=== PATIENT | male | born 1945 | race Caucasian/White ===

== ENCOUNTER 2021-02-18 06:07 | Outpatient (CLI) | payer OTHER ==
[~2021-02-18] VITALS: Ht 185 cm; Wt 90.7 kg
[2021-02-18] MEDS ORDERED: ACET325T38 PO (16:54)
[2021-02-18] MEDS ORDERED: VIT1CAPS5 PO (16:54)
== END 2021-02-18 17:22 | disposition home or self-care (01) ==
LOC: PREOP 06:07
PROVIDERS: ATTEND Radiology Radiation Oncology
DX: Z01.818 Encounter for other preprocedural examination (principal)

== ENCOUNTER 2021-02-25 14:04 | Day surgery (SDC) | payer OTHER ==
[~2021-02-25] VITALS: Ht 185 cm; Wt 90.7 kg
[2021-02-25] VITALS (11 sets, daily range): BP systolic 110–170; BP diastolic 68–102
[~2021-02-25 14:04] MED LIST: ACET325T38 PO; VIT1CAPS5 PO
--- OUTSIDE RECORDS SUMMARY | 2021-02-25 14:09 | XMS REPORT | Clinical Summary ---
Author Author [facility] Organization [facility] Address Unknown Phone Unavailable Care Team Providers Care Factory Focus Technician Name Role Phone [facility] PCP [phone] Allergies No Known Active Allergies Medications End Date Status Medication Sig Dispensed Refills Start Date Active gabapentin (NEURONTIN) Take 100 mg 0 100 MG capsule by mouth 2 (two) times a day. Active meloxicam (MOBIC) 15 MG Take 15 mg by 0 tablet mouth daily. Active aspirin 81 MG EC tablet Take 81 mg by 0 mouth daily. Active tamsulosin (FLOMAX) 0.4 Take 0.4 mg 0 mg Cp24 by mouth daily. Active ferrous sulfate (IRON Take 1 tablet 0 ORAL) by mouth daily. Active CALCIUM ORAL Take 1 tablet 0 by mouth daily. 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/06/2017 Family History Medical History Relation Name Comments Cancer Father Cancer Mother Relation Name Status Comments Father Mother Social History Date Tobacco Use Types Packs/Day Years Used Never Smoker Smokeless Tobacco: Never Used Comments Alcohol Use Standard Drinks/Week rarely Yes 0 (1 standard drink = 0.6 o z pure alcohol) Sex Assigned at Date Recorded Not on file Last Filed Vital Signs Reading Time Taken Comments Vital Sign 182/90 10/24/2017 2:45 PM CDT Blood Pressure 58 10/24/2017 2:45 PM CDT Pulse 36.5 C (97.7 F) 10/24/2017 2:25 PM CDT Temperature 15 10/24/2017 2:45 PM CDT Respiratory Rate 97% 10/24/2017 2:45 PM CDT Oxygen Saturation - - Inhaled Oxygen Concentration 89.4 kg (197 lb) 10/24/2017 1:25 PM CDT Weight 185.4 cm (6' 1") 10/24/2017 1:25 PM CDT Height 25.99 10/24/2017 1:25 PM CDT Body Mass Index Plan of Treatment Health Maintenance Due Date Last Done Comments Td/Tdap# 1945 Zoster Vaccine# (1 of 2) 1996 Fall Risk Assessment # 10/18/2011 Pneumococcal Vaccine: 65+ 10/18/2011 Years (1 of 1 - PPSV23) Influenza Vaccine (#1) 2021 Results Not on filefrom Last 3 Months Insurance Type Payer Benefit Subscriber ID Effective Phone Address Plan / Dates Group Medicare MEDICARE MEDICARE [id number] 2011-P [place] B [place], [place] Advance Directives For more information, please contact: [phone] 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
--- OUTSIDE RECORDS SUMMARY | 2021-02-25 14:09 | XMS REPORT | Clinical Summary ---
Author Author [facility] Organization All Address Unknown Phone Unavailable Allergies, Adverse Reactions, Alerts Allergy Name Reaction Description Start Date Severity Status Pr ovider ZOCOR Critical Active Carol Elder ZOCOR Critical No Longer Active Alisson Mauricio MD ZOCOR Critical Inactive Carol E lder Conditions or Problems Problem Name Problem Code Onset Date Status Entry Date Provider Comment Standard Description Annotate BMI 25-25.9 Refinement Alisson Mauricio MD Body Mass Index 25.0-25.9, adult BMI 26-26.9 Refinement Alisson Mauricio MD Body Mass Index 25.0-25.9, adult BMI 25-25.9 Refinement Alisson Mauricio MD Body Mass Index 25.0-25.9, adult BMI 24-24.9 Refinement Alisson Mauricio MD Body Mass Index 25.0-25.9, adult BMI 26-26.9 Active Jeannie Peter LPN Body Mass Index 25.0-25.9, adult Overweight (BMI 25-29.9) Resolved Alisson Mauricio MD Overweight 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 598.2 08/07 Active Alisson Mauricio MD Postoperative urethral stric ture Elevated prostate specific antigen [PSA] Active Alisson Mauricio MD Overweight (BMI 25-29.9) Active Jeannie alvarado LPN Overweight Elevated prostate specific antigen [PSA] Active Alisson Mauricio MD Adenocarcinoma, prostate, [place] Grade 7 185 Activ e Alisson Mauricio MD Malignant neoplasm of prostate Overweight (BMI 25-29.9) Inactive 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 Medication List Medication Instructions Start Date Stop Date Generic Name NDC Status Provider Patient Instruction RA ACETAMINOPHEN 325 MG ORAL TABLET 1 tablet every 8 hours as ne eded ACETAMINOPHEN 86814938725 Active Alisson Mcdaniels ctive FLOMAX 0.4 MG ORAL CAPSULE 1 capsule by mouth every ev ening for prostate symptoms TAMSULOSIN HCL 26930124280 No Longer Active J Alisson Mauricio MD Active MULTIVITAMIN ADULT EXTRA C ORAL TABLET CHEWABLE 1 tab by mouth shabbir y MULTIPLE VITAMINS-MINERALS 40352511679 Active Carol Elder A ctive ASPIRIN ADULT LOW DOSE 81 MG ORAL TABLET DELAYED RELEASE 1 daily ASPIRIN 30207531770 Active Carol Elder Active FLOMAX 0.4 MG ORAL CAPSULE 1 capsule by mouth every ev ening for prostate symptoms FLOMAX 0.4 MG ORAL CAPSULE 000670 TAMSULOSI N HCL Inactive Immunizations Vaccine Administration Date Value Standard Aldair cription influenza immunization (Flu Vax) has been administered 08/07 Done according to patient Encounters Code Encounter Date Provider Facility CPT-03225 Level 4 Est. Patient 19:18:39 CDT Alisson sandoval MD [facility] CPT-68565 Level 4 New Patient 19:15:54 CDT Alisson mendoza MD [facility] CPT-64114 Level 3 Est. Patient 19:38:57 WATER QUALITY TESTER Alisson sandoval MD [facility] CPT-58105 Level 3 Est. Patient 13:43:19 CDT Alisson sandoval MD [facility] CPT-65546 Level 3 Est. Patient 15:37:09 CDT Alisson sandoval MD [facility] CPT-52943 Level 3 Est. Patient 10:46:38 CDT Alisson sandoval MD [facility] CPT-42582 Level 3 Est. Patient 16:50:35 CDT Alisson sandoval MD [facility] CPT-08211 Level 4 New Patient 15:37:12 WATER QUALITY TESTER Alisson mendoza MD [facility] Procedures Code Procedure Name Date Entry Date Standard Desc ription CPT-72820 Dil ureth strict sound/dilator M int 15:37:09 CDT CPT-87992 Cystoscopy 15:37:09 CDT CPT-08424 Cystoscopy 16:50:35 CDT [id number]-[id number] (4274F) Influenza immunization administe red or previously received 16:50:35 CDT CPT-01008 Dil ureth strict sound/dilator M int 15:37:12 WATER QUALITY TESTER CPT-25988 Cystoscopy 15:37:12 WATER QUALITY TESTER [id number]-[id number] (4274F) Influenza immunization administe red or previously received 15:37:12 WATER QUALITY TESTER
--- OUTSIDE RECORDS SUMMARY | 2021-02-25 14:09 | XMS REPORT | Clinical Summary ---
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 Medication List Medication Instructions Start Date Stop Date Generic Name NDC Status Provider Patient Instruction RA ACETAMINOPHEN 325 MG ORAL TABLET 1 tablet every 8 hours as ne eded ACETAMINOPHEN 57774600694 Active Alisson Mcdaniels ctive FLOMAX 0.4 MG ORAL CAPSULE 1 capsule by mouth every ev ening for prostate symptoms TAMSULOSIN HCL 87245839056 No Longer Active J Alisson Mauricio MD Active MULTIVITAMIN ADULT EXTRA C ORAL TABLET CHEWABLE 1 tab by mouth shabbir y MULTIPLE VITAMINS-MINERALS 30119478837 Active Carol Elder A ctive ASPIRIN ADULT LOW DOSE 81 MG ORAL TABLET DELAYED RELEASE 1 daily ASPIRIN 53909866145 Active Carol Elder Active FLOMAX 0.4 MG ORAL CAPSULE 1 capsule by mouth every ev ening for prostate symptoms FLOMAX 0.4 MG ORAL CAPSULE 632643 TAMSULOSI N HCL Inactive Immunizations Vaccine Administration Date Value Standard [place]air cription influenza immunization (Flu Vax) has been administered 08/07 Done according to patient Encounters Code Encounter Date Provider Facility CPT-10041 Level 4 Est. Patient 19:18:39 CDT Alisson sandoval MD [facility] CPT-35831 Level 4 New Patient 19:15:54 CDT Alisson mendoza MD [facility] CPT-19910 Level 3 Est. Patient 19:38:57 CONTROL TECHNICIAN Alisson sandoval MD [facility] CPT-15065 Level 3 Est. Patient 13:43:19 CDT Alisson sandoval MD [facility] CPT-78377 Level 3 Est. Patient 15:37:09 CDT Alisson sandoval MD [facility] CPT-13267 Level 3 Est. Patient 10:46:38 CDT Alisson sandoval MD [facility] CPT-93222 Level 3 Est. Patient 16:50:35 CDT Alisson sandoval MD [facility] [place]note 2[facility]a CPT-32235 Level 4 New Patient 15:37:12 CONTROL TECHNICIAN Alisson mendoza MD [facility] Procedures Code Procedure Name Date Entry Date Standard Desc ription CPT-25693 Dil ureth strict sound/dilator M int 15:37:09 CDT CPT-92203 Cystoscopy 15:37:09 CDT CPT-34410 Cystoscopy 16:50:35 CDT [id number]-[id number] (4274F) Influenza immunization administe red or previously received 16:50:35 CDT CPT-59127 Dil ureth strict sound/dilator M int 15:37:12 CONTROL TECHNICIAN CPT-39520 Cystoscopy 15:37:12 CONTROL TECHNICIAN CPT-[id number] (4274F) Influenza immunization administe red or previously received 15:37:12 CONTROL TECHNICIAN
--- OUTSIDE RECORDS SUMMARY | 2021-02-25 14:09 | XMS REPORT | Clinical Summary ---
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 Medication List Medication Instructions Start Date Stop Date Generic Name NDC Status Provider Patient Instruction RA ACETAMINOPHEN 325 MG ORAL TABLET 1 tablet every 8 hours as ne eded ACETAMINOPHEN 89339176894 Active Alisson Mcdaniels ctive FLOMAX 0.4 MG ORAL CAPSULE 1 capsule by mouth every ev ening for prostate symptoms TAMSULOSIN HCL 11636026081 No Longer Active J Alisson Mauricio MD Active MULTIVITAMIN ADULT EXTRA C ORAL TABLET CHEWABLE 1 tab by mouth shabbir y MULTIPLE VITAMINS-MINERALS 55951218693 Active Carol Elder A ctive ASPIRIN ADULT LOW DOSE 81 MG ORAL TABLET DELAYED RELEASE 1 daily ASPIRIN 14235897937 Active Carol Elder Active FLOMAX 0.4 MG ORAL CAPSULE 1 capsule by mouth every ev ening for prostate symptoms FLOMAX 0.4 MG ORAL CAPSULE 509834 TAMSULOSI N HCL Inactive Immunizations Vaccine Administration Date Value Standard [place]air cription influenza immunization (Flu Vax) has been administered 08/07 Done according to patient influenza virus vaccine, unspecified for mulation Vital Signs Date Name Value Unit Range Description blood pressure, diastolic, repeated by physician 78 BP roman blood pressure, diastolic 78 mm[Hg] BP roman blood pressure, systolic, repeated by physician 120 BP sys blood pressure, systolic 120 mm[Hg] BP sys height E&M 73 [in_us] Bdy height pulse rate 80 /min Heart rate temperature E&M 98.2 [degF] Body temp erature weight E&M 200 [lb_av] Weight Measure d blood pressure, diastolic 76 mm[Hg] BP roman blood pressure, systolic 122 mm[Hg] BP sys height E&M 73 [in_us] Bdy height pulse rate 78 /min Heart rate temperature E&M 98.0 [degF] Body temp erature weight E&M 200 [lb_av] Weight Measure d blood pressure, diastolic, repeated by physician 70 BP roman blood pressure, diastolic 70 mm[Hg] BP roman blood pressure, systolic, repeated by physician 118 BP sys blood pressure, systolic 118 mm[Hg] BP sys height E&M 73 [in_us] Bdy height pulse rate 68 /min Heart rate temperature E&M 98.3 [degF] Body temp erature weight E&M 184 [lb_av] Weight Measure d Encounters Code Encounter Date Provider Facility CPT-99386 Level 4 Est. Patient 19:18:39 CDT Alisson sandoval MD [facility] CPT-50123 Level 4 New Patient 19:15:54 CDT Alisson mendoza MD [facility] CPT-22603 Level 3 Est. Patient 19:38:57 WATER SKI ASSEMBLER Alisson sandoval MD [facility] CPT-66055 Level 3 Est. Patient 13:43:19 CDT Alisson sandoval MD [facility] CPT-30734 Level 3 Est. Patient 15:37:09 CDT Alisson sandoval MD [facility] CPT-84350 Level 3 Est. Patient 10:46:38 CDT Alisson sandoval MD [facility] CPT-83989 Level 3 Est. Patient 16:50:35 CDT Alisson sandoval MD [facility] CPT-37732 Level 4 New Patient 15:37:12 WATER SKI ASSEMBLER Alisson mendoza MD [facility] Procedures Code Procedure Name Date Entry Date Standard Desc ription CPT-11921 Dil ureth strict sound/dilator M int 15:37:09 CDT CPT-06820 Cystoscopy 15:37:09 CDT CPT-74156 Cystoscopy 16:50:35 CDT [id number]-[id number] (4274F) Influenza immunization administe red or previously received 16:50:35 CDT CPT-72711 Dil ureth strict sound/dilator M int 15:37:12 WATER SKI ASSEMBLER CPT-40002 Cystoscopy 15:37:12 WATER SKI ASSEMBLER CPT-[id number] (4274F) Influenza immunization administe red or previously received 15:37:12 WATER SKI ASSEMBLER
[2021-02-25] MEDS ORDERED: fentaNYL INJ 100 MCG/2 ML AMP ONE (14:30)
[2021-02-25] MEDS ORDERED: proPOfol 200 MG/20 ML (DIPRIVAN) VIAL IV ONE (14:30)
[2021-02-25] MEDS ORDERED: LIDOCAINE PF 2% 5 ML (XYLOCAINE) VIAL ONE (14:30)
[2021-02-25] MEDS ORDERED: SEVOFLURANE (ULTANE) 15 ML INHAL SOLN ONE (14:30)
[2021-02-25] MEDS ORDERED: ONDANSETRON 4 MG/2 ML (SDV) Z0FRAN ONE (14:30)
[2021-02-25] MEDS ORDERED: LACTATED RINGERS 1,000 ML IV PRN (14:30)
[2021-02-25] MEDS ORDERED: MIDAZOLAM 2 MG/2 ML (VERSED) VIAL ONE (14:30)
--- NOTE | 2021-02-25 14:36 | Progress Note-Pre Operative ---
Pre-Operative Progress Note H&P Reviewed The H&P was reviewed, patient examined and no changes noted. Date Seen by Provider: Feb 25, 2021 Time Seen by Provider: 14:35 Date H&P Reviewed: Feb 25, 2021 Time H&P Reviewed: 14:35 Pre-Operative Diagnosis: Prostate cancer cT1c, PSA 7.05, [place] 7 (3+4) JAIME ABDALLA MD Feb 25, 2021 14:36
--- NOTE | 2021-02-25 14:39 | Discharge Inst-Simple/Standard ---
Discharge Inst-Standard Reconcile Patient Problems Problems Reviewed?: Yes Discharge Medications New, Converted or Re-Newed RX: Other (Patient has antibiotic at home.) Patient Instructions/Follow Up Plan of Care/Instructions/FU: Treatment planning ct simulation at [facility] cancer center 03/10/21. Arrive at 9:30 a.m. to drink oral contrast. Sim at 10:00 a.m. Activity as Tolerated: Yes Discharge Diet: No Restrictions JAIME ABDALLA MD Feb 25, 2021 14:39
[2021-02-25] MEDS ORDERED: KETOROLAC 30 MG/ML VIAL ONE (15:01)
--- NOTE | 2021-02-25 15:14 | Anesthesia-General Post-Op ---
General Patient Condition Mental Status/LOC: Same as Preop Cardiovascular: Satisfactory Nausea/Vomiting: Absent Respiratory: Satisfactory Pain: Controlled Complications: Absent Post Op Complications Complications None Follow Up Care/Instructions Patient Instructions None needed. Anesthesia/Patient Condition Patient Condition Patient is doing well, no complaints, stable vital signs, no apparent adverse anesthesia problems. No complications reported per nursing. D/C home [place] [facility] Criteria: Yes YEHUDA KAPLAN CRNA Feb 25, 2021 15:14
[2021-02-25] MEDS ORDERED: HYDROmorphone 2 MG/ML VIAL (DILAUDID) IV ONE (15:15)
[2021-02-25] MEDS ORDERED: ONDANSETRON 4 MG/2 ML (SDV) Z0FRAN IVP PRN (15:15)
--- NOTE | 2021-02-25 15:22 | Progress Note-Post Operative ---
Post-Operative Progess Note Surgeon (s)/Supervisor Filter Assembly (s) Surgeon Alisson SAAVEDRA MD Supervisor Filter Assembly: JAIME ABDALLA MD Pre-Operative Diagnosis Prostate cancer cT1c, PSA 7.05, [place] 7 (3+4) Post-Operative Diagnosis Same as pre-op Procedure & Operative Findings Date of Procedure 02/25/21 Procedure Performed/Findings Ultrasound guided (1) Placement of fiducial gold seed markers (2) Injection of biodegradable hydrogel prostate-rectal spacer utilizing the [employer] Ang[employer]lica system Anesthesia Type General Estimated Blood Loss Estimated blood loss (mL): Minimal Specimens/Packing Specimens Removed None Packing: None JAIME ABDALLA MD Feb 25, 2021 15:22
== END 2021-02-25 17:03 | disposition home or self-care (01) ==
LOC: SDC 14:04
PROVIDERS: ATTEND Radiology Radiation Oncology
DX: C61 Malignant neoplasm of prostate (principal); G47.33 Obstructive sleep apnea (adult) (pediatric); E78.00 Pure hypercholesterolemia, unspecified; E55.9 Vitamin D deficiency, unspecified; Z99.89 Dependence on other enabling machines and devices; Z80.8 Family history of malignant neoplasm of other organs or systems
CPT/HCPCS: 87081

== ENCOUNTER 2021-04-24 08:53 | Outpatient (RCR) | payer OTHER | END 2021-04-26 | disposition home or self-care (01) | LOC: ONC 08:53 | PROVIDERS: ATTEND Radiology Radiation Oncology | DX: C61 Malignant neoplasm of prostate (principal); E78.00 Pure hypercholesterolemia, unspecified | CPT/HCPCS: 77300; 77301; 77334; 77336; 77338; 77385; 99204 ==

== ENCOUNTER 2021-06-04 09:27 | Outpatient (RCR) | payer OTHER | END 2021-06-05 | LOC: ONC 09:27 | PROVIDERS: ATTEND Radiology Radiation Oncology | DX: C61 Malignant neoplasm of prostate (principal); E78.00 Pure hypercholesterolemia, unspecified | CPT/HCPCS: 77336; 84153; 99213 ==

== ENCOUNTER 2021-11-12 08:46 | Outpatient (RCR) | payer OTHER | END 2021-12-03 | disposition home or self-care (01) | LOC: ONC 08:46 | PROVIDERS: ATTEND Radiology Radiation Oncology | DX: C61 Malignant neoplasm of prostate (principal); E78.00 Pure hypercholesterolemia, unspecified | CPT/HCPCS: 36415; 84153; 99213 ==

== ENCOUNTER 2022-04-15 05:43 | Outpatient (CLI) | payer OTHER ==
[~2022-04-15] VITALS: Ht 185.4 cm; Wt 88.0 kg
[2022-04-15] MEDS ORDERED: CYAN1TAB26 PO (10:55)
[2022-04-15] MEDS ORDERED: ASCO500C18 PO (10:55)
[2022-04-15] MEDS ORDERED: FERR-84 PO (10:55)
== END 2022-04-15 10:58 | disposition home or self-care (01) ==
LOC: PREOP 05:43
PROVIDERS: ATTEND Surgery
DX: Z01.818 Encounter for other preprocedural examination (principal)

== ENCOUNTER 2022-04-22 11:43 | Day surgery (SDC) | payer OTHER ==
[~2022-04-22] VITALS: Ht 185.4 cm; Wt 88.0 kg
[~2022-04-22 11:43] MED LIST changes: +ASCO500C18 PO; +CYAN1TAB26 PO; +FERR-84 PO
[2022-04-22] MEDS ORDERED: LACTATED RINGERS 1,000 ML IV STA (11:46)
[2022-04-22] MEDS ORDERED: LACTATED RINGERS 1,000 ML IV ONE (11:47)
[2022-04-22] MEDS ORDERED: HURRICAINE EXT TUBE (BENZOCAINE) ONE (11:47)
[2022-04-22 12:00] VITALS: BP 163/88
[2022-04-22] MEDS ORDERED: HURRICAINE EXT TUBE (BENZOCAINE) XX PRN (12:00)
--- NOTE | 2022-04-22 12:54 | Progress Note-Pre Operative ---
Pre-Operative Progress Note Date of Available H&P: Apr 07, 2022 Date H&P Reviewed: Apr 22, 2022 Time H&P Reviewed: 12:53 History & Physical: H&P Reviewed, Patient Examed, No changes noted Pre-Operative Diagnosis: iron def anemia REGULO POWER DO Apr 22, 2022 12:54
[2022-04-22] MEDS ORDERED: PROPOFOL INJECTION 50 ML IV ONE (13:00)
[2022-04-22 13:35] VITALS: BP 117/66
[2022-04-22] MEDS ORDERED: SUCR1TAB36 PO (13:37)
[2022-04-22] MEDS ORDERED: PANT40TA2 PO (13:37)
--- NOTE | 2022-04-22 13:38 | Discharge Inst-Simple/Standard ---
Discharge Inst-Standard Patient Instructions/Follow Up Plan of Care/Instructions/FU: Follow up with Dr. Valdez in 2 weeks Activity as Tolerated: Yes Discharge Diet: No Restrictions, Regular Diet REGULO VALDEZ DO Apr 22, 2022 13:38
[2022-04-22 13:40] VITALS: BP 122/68
[2022-04-22 13:45] VITALS: BP 122/68
[2022-04-22 14:14] VITALS: BP 122/68
--- NOTE | 2022-04-22 20:30 | OPERATIVE REPORT ---
DATE OF SERVICE: 04/22/2022 PREOPERATIVE DIAGNOSIS: Iron deficiency anemia. POSTOPERATIVE DIAGNOSES: Gastric ulcer, small hiatal hernia, normal colon. PROCEDURE: EGD with biopsies, colonoscopy. SURGEON: Regulo Valdez DO ANESTHESIA: Per SR. MANAGER. ESTIMATED BLOOD LOSS: None. COMPLICATIONS: None. INDICATIONS: The patient is a 76-year-old male with iron deficiency anemia. He understands risks and benefits of procedure and wishes to proceed. Consent was signed in chart. DESCRIPTION OF PROCEDURE: The patient was taken to the endoscopy suite, placed in left lateral position. Timeout was performed. Scope inserted in the mouth, down the esophagus and up into the duodenum without difficulty. No polyps, masses or ulcerations within the duodenum. Scope was retracted back into the stomach, insufflated. Some slight gastritis appearance in the antrum. In the body, a gastric ulcer present. Biopsy of the antrum and the gastric ulcer were obtained. Scope was retroflexed noting a small hiatal hernia. No other pathology. Scope was returned to its normal position slowly withdrawn to the distal esophagus. No polyps, masses or ulcerations. Biopsy of the GE junction was obtained. Scope was then slowly retracted back noting no other pathology. Digital rectal exam was performed. No palpable polyps, masses or ulcerations. Scope was inserted in the rectum and advanced all the way to the ileocolonic anastomosis. Scope was then slowly retracted back. Prep was adequate. No polyps, masses or ulceration of the ileocolonic anastomosis through the ascending, transverse, descending and sigmoid colon. Once in the rectum, scope was retroflexed noting no other pathology. Scope was returned to its normal position and slowly withdrawn to completely remove. The patient tolerated the procedure well without complications, taken to recovery room in stable condition. RECOMMENDATIONS: The patient will need repeat colonoscopy on an needed basis. He has a gastric ulcer. We will start the patient on Protonix 40 mg daily and Carafate 1 gram 4 times a day. Follow up in 2 weeks to discuss pathology results and see how his symptoms are doing. Job ID: [id number] DocumentID: [id number] Dictated Date: 04/22/2022 13:41:11 Manager Farm Date: 04/22/2022 20:28:00 Dictated By: REGULO VALDEZ DO
--- NOTE | 2022-04-23 12:40 | Anesthesia-General Post-Op ---
MAC Patient Condition Mental Status/LOC: Same as Preop Cardiovascular: Satisfactory Nausea/Vomiting: Absent Respiratory: Satisfactory Pain: Controlled Complications: Absent Post Op Complications Complications None Follow Up Care/Instructions Patient Instructions None needed. Anesthesiology Discharge Order Discharge Order Patient is doing well, no complaints, stable vital signs, no apparent adverse anesthesia problems. No complications reported per nursing. NEELIMA JEAN-BAPTISTE CRNA Apr 23, 2022 12:40
== END 2022-04-22 14:27 | disposition home or self-care (01) ==
LOC: ENDO 11:43
PROVIDERS: ATTEND Surgery
DX: K25.9 Gastric ulcer, unspecified as acute or chronic, without hemorrhage or perforation (principal); K44.9 Diaphragmatic hernia without obstruction or gangrene; K29.50 Unspecified chronic gastritis without bleeding; K31.89 Other diseases of stomach and duodenum; D50.9 Iron deficiency anemia, unspecified; G47.33 Obstructive sleep apnea (adult) (pediatric); K52.9 Noninfective gastroenteritis and colitis, unspecified

== ENCOUNTER 2022-05-07 09:05 | Outpatient (RCR) | payer OTHER ==
[~2022-05-07 09:05] MED LIST changes: +PANT40TA2 PO; +SUCR1TAB36 PO
== END 2022-06-05 | disposition home or self-care (01) ==
LOC: ONC 09:05
PROVIDERS: ATTEND Radiology Radiation Oncology
DX: C61 Malignant neoplasm of prostate (principal); E78.00 Pure hypercholesterolemia, unspecified; Z12.5 Encounter for screening for malignant neoplasm of prostate
CPT/HCPCS: 36415; 84153

== ENCOUNTER → 2022-12-15 | Outpatient (CLI) | payer OTHER | LOC: PREOP 05:39 | PROVIDERS: ATTEND Surgery | DX: Z01.818 Encounter for other preprocedural examination (principal); Z87.898 Personal history of other specified conditions ==

== ENCOUNTER 2022-12-28 09:25 | Day surgery (SDC) | payer OTHER ==
[~2022-12-28] VITALS: Ht 185.4 cm; Wt 77.1 kg
[~2022-12-28 09:25] MED LIST changes: +COLE1TAB PO
[2022-12-28] MEDS ORDERED: LACTATED RINGERS 1,000 ML IV STA (09:31)
[2022-12-28] MEDS ORDERED: HURRICAINE EXT TUBE (BENZOCAINE) ONE (09:35)
[2022-12-28] MEDS ORDERED: LACTATED RINGERS 1,000 ML IV ONE (09:35)
[2022-12-28] MEDS ORDERED: HURRICAINE EXT TUBE (BENZOCAINE) XX PRN (09:45)
[2022-12-28 10:05] VITALS: BP 122/69
[2022-12-28] MEDS ORDERED: PROPOFOL INJECTION 50 ML IV ONE (10:30)
[2022-12-28] MEDS ORDERED: PANT40TA2 PO (10:41)
[2022-12-28 10:45] VITALS: BP 134/71
--- NOTE | 2022-12-28 10:45 | Progress Note-Post Operative ---
Post-Operative Progess Note Surgeon (s)/Music Instructor (s) Surgeon REGULO POWER DO Music Instructor: na Pre-Operative Diagnosis hx gastric ulcer Post-Operative Diagnosis small hiatal hernia, mucosal change body stomach Procedure & Operative Findings Date of Procedure 12/28/22 Procedure Performed/Findings egd c biopsy Anesthesia Type per rock duster Estimated Blood Loss Estimated blood loss (mL): none Specimens/Packing Specimens Removed body REGULO POWER DO Dec 28, 2022 10:44
--- NOTE | 2022-12-28 10:46 | Discharge Inst-Simple/Standard ---
Discharge Inst-Standard Patient Instructions/Follow Up Plan of Care/Instructions/FU: 2 weeks José Miguel Activity as Tolerated: Yes Discharge Diet: Regular Diet REGULO POWER DO Dec 28, 2022 10:46
[2022-12-28 10:55] VITALS: BP 143/76
[2022-12-28 11:19] VITALS: BP 143/76
--- NOTE | 2022-12-28 11:38 | Anesthesia-General Post-Op ---
MAC Patient Condition Mental Status/LOC: Same as Preop Cardiovascular: Satisfactory Nausea/Vomiting: Absent Respiratory: Satisfactory Pain: Controlled Complications: Absent Post Op Complications Complications None Follow Up Care/Instructions Patient Instructions None needed. Anesthesiology Discharge Order Discharge Order Patient is doing well, no complaints, stable vital signs, no apparent adverse anesthesia problems. No complications reported per nursing. CHARLEY BARAJAS CRNA Dec 28, 2022 11:38
--- NOTE | 2022-12-28 15:06 | OPERATIVE REPORT ---
DATE OF SERVICE: 12/28/2022 PREOPERATIVE DIAGNOSIS: History of gastric ulcer. POSTOPERATIVE DIAGNOSES: Small hiatal hernia, mucosal change of the body of stomach. PROCEDURE: EGD with biopsy. SURGEON: Regulo Valdez DO ANESTHESIA: Per ROUTE CLERK. ESTIMATED BLOOD LOSS: None. COMPLICATIONS: None. SPECIMENS: Body of the stomach. INDICATIONS: The patient is a 77-year-old male with history of gastric ulcer. He understands risks and benefits of procedure and wished to proceed. Consent was signed in chart. DESCRIPTION OF PROCEDURE: The patient was taken to endoscopy suite, placed in left lateral recumbent position. Timeout was performed. Scope was inserted in the mouth, down the esophagus, stomach, into the duodenum without difficulty. No polyps, masses or ulcerations in the duodenum. Scope was retracted back into Stomach further and where it was further insufflated. No polyps, masses or ulcerations. Slight mucosal change of the body. Biopsy of the body was obtained. Scope was retroflexed, noting a very small hiatal hernia, no other pathology. Scope was returned to its normal position, slowly withdrawn until distal esophagus. Normal appearance, no polyps, masses or ulcerations. Scope was slowly retracted back until completely removed. The patient tolerated the procedure well, no complications, taken to recovery room in stable condition. RECOMMENDATIONS: The patient will follow up on pathology in 2 weeks. He will be started on Protonix 40 mg daily. Await biopsy results for the further recommendations. Job ID: [id number] DocumentID: [id number] Dictated Date: 12/28/2022 10:44:37 Geology Instructor Date: 12/28/2022 15:03:00 Dictated By: REGULO VALDEZ DO
== END 2022-12-28 11:25 | disposition home or self-care (01) ==
LOC: ENDO 09:25
PROVIDERS: ATTEND Surgery
DX: K44.9 Diaphragmatic hernia without obstruction or gangrene (principal); K31.89 Other diseases of stomach and duodenum; R63.4 Abnormal weight loss; G47.33 Obstructive sleep apnea (adult) (pediatric); Z87.11 Personal history of peptic ulcer disease; Z79.899 Other long term (current) drug therapy; Z68.22 Body mass index [BMI] 22.0-22.9, adult

== ENCOUNTER → 2023-01-17 | Outpatient (CLI) | payer OTHER ==
--- NOTE | 2023-01-17 11:39 | Diagnostic Imaging Report ---
INDICATION: Globus sensation. The procedure was performed in conjunction with speech pathology. Video fluoroscopy was performed during swallowing of barium in multiple consistencies. 88 seconds of fluoroscopic time was utilized. Reference air kerma 2.9 mGy. Patient ingested thin barium through a straw as as well as with a spoon. Patient also ingested applesauce and cracker consistency. There were several episodes of deep laryngeal penetration during swallowing of thin barium. There is somewhat of a weak swallow. There is significant vallecular residue noted with all consistencies. This eventually did clear with multiple repeat swallows. No aspiration was observed. IMPRESSION: Laryngeal penetration with thin liquids without evidence of aspiration. There is also moderate amount of vallecular residue noted. Dictated by: Dictated on workstation # [id number]
== END ==
LOC: RAD 09:56
PROVIDERS: ATTEND Surgery
DX: R13.10 Dysphagia, unspecified (principal)
CPT/HCPCS: 74230